=== PATIENT | female | born 1980 | race Caucasian/White ===

== ENCOUNTER → 2020-11-08 | Outpatient (REF) | payer OTHER, SELFPAY | LOC: M LAB REF 17:17 | PROVIDERS: ATTEND Internal Medicine Endocrinology, Diabetes & Metabolism | DX: E04.2 Nontoxic multinodular goiter (principal) ==

== ENCOUNTER → 2021-02-02 | Outpatient (REF) | payer SELFPAY | LOC: M LAB REF 17:18 | PROVIDERS: ATTEND Internal Medicine Endocrinology, Diabetes & Metabolism | DX: E04.2 Nontoxic multinodular goiter (principal) ==